=== PATIENT | female | born 1985 | race Caucasian/White ===

== ENCOUNTER → 2021-02-20 06:39 | Outpatient (CLI) | payer OTHER, SELFPAY ==
--- NOTE | 2021-02-20 | DI.MRI.S_ITS ---
PROCEDURE: MR FOOT RT WO CON INDICATIONS: UNSPECIFIED INJURY OF RT FOOT TECHNIQUE: Noncontrast sagittal T1 spin echo and T2 fast spin echo with fat saturation, long-axis T1 spin echo and T2 fast spin echo with fat saturation, short-axis T1 spin echo and T2 fast spin echo with fat saturation through the forefoot. COMPARISON: None. FINDINGS: Image quality: Excellent. Bones and joints: No bone marrow contusions or metatarsal stress fractures. The sesamoid bones appear in expected positions, without internal edema. No metatarsophalangeal joint degeneration. No intraosseous lesions. Soft tissues: There is soft tissue edema seen in the dorsal subcutaneous soft tissues at the level of the 2nd and 3rd metatarsal heads. The extensor tendons appear grossly intact although cannot exclude low-grade occult strain The distal insertions of the peroneus brevis and longus tendons appear intact. The principal Lisfranc ligament appears intact. No soft tissue ganglion cysts or bursal fluid collections. Sagittal images demonstrate no evidence for plantar plate tears. Small 2nd and 3rd MTP joint effusions. There is diffuse subcutaneous edema involving the plantar forefoot at the level of the 2nd and 3rd MTP joints. There is also 1st MTP small joint effusion. Mild age-indeterminate nonspecific soft tissue edema at the level of the 5th MTP joint. IMPRESSION: Subcutaneous soft tissue edema in the region of the 2nd and 3rd metatarsal joints, involving the plantar and dorsal aspects. These could represent soft tissue contusions, potentially with related occult low-grade strain of the 2nd and 3rd toe slips of the extensor digitorum longus, however tendons appear grossly intact. Edema surrounding the flexor tendons diffusely at the level of the 2nd and 3rd MTP joints could also be related to low-grade occult strain which is not well visualized by MR. Recommend clinical correlation to exam findings. Adjacent 2nd and 3rd MTP joint effusions. No evidence of occult fracture Dictated by: Alvarez Hoagn M.D. on 02/20/2021 at 8:24 Approved by: Alvarez Hoang M.D. on 02/20/2021 at 8:36
== END ==
PROVIDERS: Referring Provider Family Medicine; Visit Provider Family Medicine
DX: S99.921A Unspecified injury of right foot, initial encounter (principal); M25.474 Effusion, right foot
CPT/HCPCS: 73718